=== PATIENT | female | born 1995 | race Caucasian/White ===

== ENCOUNTER 2016-05-04 10:37 | Emergency (ER) | payer MEDICAID ==
[~2016-05-04] VITALS: Ht 167.6 cm; Wt 107.7 kg
[~2016-05-04 10:37] MED LIST: ARIP5TAB6 PO; CLON0.5T PO; ESCI10TA10 PO; ESCI20TA10 PO; GABA300C10 PO; LORA0.5T PO; NORT50CA PO; OLAN5TAB9 PO; bcp PO
[2016-05-04] MEDS ORDERED: CLON0.5T PO (11:24)
[2016-05-04 11:41] LABS: HEMOGLOBIN 12.8 g/dL (11.7-16.4)
[2016-05-04 11:56] LABS: HCG UR OBC PASS
[2016-05-04 12:38] VITALS: BP 119/61
== END 2016-05-04 12:40 | disposition home or self-care (01) ==
LOC: ED 12:05
DX: N93.8 Other specified abnormal uterine and vaginal bleeding (principal); Z90.49 Acquired absence of other specified parts of digestive tract
CPT/HCPCS: 36415; 81003; 81025; 85014; 85018; 85610; 99284

== ENCOUNTER 2017-01-22 10:06 | Emergency (ER) | payer MEDICAID ==
[~2017-01-22] VITALS: Ht 167.6 cm; Wt 105.6 kg
[~2017-01-22 10:06] MED LIST changes: +ARIP5TAB13 PO; -ARIP5TAB6 PO
[2017-01-22] MEDS ORDERED: ONDANSETRON ODT 4 MG PO ONE (11:00)
[2017-01-22 11:54] LABS: HEMOGLOBIN 15.7 g/dL (11.7-16.4); WHITE BLOOD COUNT 19.4 x10^3/uL (3.4-10)
[2017-01-22] MEDS ORDERED: SULFAMETH./TRIMETHOPRIM DS 800MG/160MG TABLET PO ONE (12:00)
[2017-01-22] MEDS ORDERED: FAMOTIDINE 20 MG TABLET PO ONE (12:00)
[2017-01-22] MEDS ORDERED: MAALOX/HYOSCYAMINE/LIDOCAINE 45 ML BTL PO ONE (12:00)
[2017-01-22 12:06] LABS: BLOOD UREA NITROGEN 10 mg/dL (7-18)
[2017-01-22 12:11] LABS: ASPARTATE AMINO TRANSFERASE 109 U/L (15-37); DIFF TOTAL CELLS COUNTED 100 CELL DIFF
[2017-01-22 12:14] LABS: VERIFY COUNTS? YES
[2017-01-22 13:53] VITALS: BP 97/60
== END 2017-01-22 13:55 | disposition home or self-care (01) ==
LOC: ED 12:23
DX: K52.9 Noninfective gastroenteritis and colitis, unspecified (principal); F41.9 Anxiety disorder, unspecified; F32.9 Major depressive disorder, single episode, unspecified; F42.9 Obsessive-compulsive disorder, unspecified; Z90.49 Acquired absence of other specified parts of digestive tract
CPT/HCPCS: 36415; 76700; 80053; 81003; 83880; 84703; 85025; 99285; Q0162

== ENCOUNTER 2018-05-07 11:28 | Emergency (ER) | payer MEDICAID ==
[~2018-05-07] VITALS: Ht 167.6 cm; Wt 87.0 kg
[~2018-05-07 11:28] MED LIST changes: -NORT50CA PO; +NORT50CA52 PO
[2018-05-07 11:38] VITALS: BP 127/92
[2018-05-07] MEDS ORDERED: HYDROcodone/APAP 5/325 TABLET ONE ×2 (11:52→11:55)
[2018-05-07] MEDS ORDERED: HYDROcodone/APAP 5/325 TABLET PO ONE (12:00)
--- NOTE | 2018-05-07 12:17 | NUR ---
RIGHT FOOT PAIN STARTED ONE MONTH AGO AND WORSENING. MEDICATED FOR PAIN AND PROVIDED ICE FOR FOOT. AWAITING XRAY
== END 2018-05-07 13:10 | disposition home or self-care (01) ==
LOC: ED 12:47
DX: S90.31XA Contusion of right foot, initial encounter (principal); F32.9 Major depressive disorder, single episode, unspecified; F17.200 Nicotine dependence, unspecified, uncomplicated; Z90.49 Acquired absence of other specified parts of digestive tract; X58.XXXA Exposure to other specified factors, initial encounter; Y93.89 Activity, other specified; Y92.89 Other specified places as the place of occurrence of the external cause; Y99.8 Other external cause status
CPT/HCPCS: 99283

== ENCOUNTER 2018-06-26 18:57 | Emergency (ER) | payer OTHER, MEDICAID ==
[~2018-06-26] VITALS: Ht 167.6 cm; Wt 85.1 kg
[2018-06-26 19:13] VITALS: BP 113/76
[2018-06-26] MEDS ORDERED: SODIUM CHLORIDE FLUSH 10ML SYR IVF ONE (19:30)
[2018-06-26 19:41] LABS: BASOPHILS # (AUTO) 0.03 x10^3/uL (0-0.1); BASOPHILS % (AUTO) 0 % (0-1); EOSINOPHILS # (AUTO) 0.03 x10^3/uL (0-0.4); EOSINOPHILS % (AUTO) 0 % (1-7); LYMPHOCYTES # (AUTO) 1.37 x10^3/uL (1-3.4); LYMPHOCYTES % (AUTO) 21 % (22-44); MD NO; MEAN CORPUSCULAR HGB CONC 32.3 g/dL (32.4-35.8); MEAN PLATELET VOLUME 8.9 fL (7.4-10.4); MONOCYTES # (AUTO) 0.42 x10^3/uL (0.2-0.8); MONOCYTES % (AUTO) 6 % (2-9); NEUTROPHILS # (AUTO) 4.69 x10^3/uL (1.8-6.8); NEUTROPHILS % (AUTO) 72 % (42-75); PLATELET COUNT 300 x10^3/uL (130-400); RED BLOOD COUNT 5.05 x10^6/uL (3.82-5.3); RED CELL DISTRIBUTION WIDTH 12.8 % (9.6-15.2)
[2018-06-26 19:55] LABS: ALBUMIN 3.7 g/dL (3.4-5.0); ANION GAP 8 mmol/L (5-15); CALCIUM 9.2 mg/dL (8.5-10.1); CHLORIDE 108 mmol/L (98-107)
[2018-06-26 20:01] LABS: ALANINE AMINOTRANSFERASE 64 U/L (12-78); ALKALINE PHOSPHATASE 92 U/L (45-117); BILIRUBIN,TOTAL 0.9 mg/dL (0.2-1.0); TOTAL PROTEIN 7.4 g/dL (6.4-8.2)
[2018-06-26] MEDS ORDERED: PROMETHAZINE 25 MG/ML, 1ML IM ONE (20:30)
[2018-06-26] MEDS ORDERED: PROMETHAZINE 25 MG/ML, 1ML ONE (20:34)
--- NOTE | 2018-06-26 20:44 | NUR ---
Pt medicated per MAR for N/V. Given warm blanket s/t chills. Mother at bedside. Pt to be d/c.
== END 2018-06-26 20:57 | disposition home or self-care (01) ==
LOC: ED 20:50
DX: F11.23 Opioid dependence with withdrawal (principal); F41.1 Generalized anxiety disorder; Z72.9 Problem related to lifestyle, unspecified; F32.9 Major depressive disorder, single episode, unspecified
CPT/HCPCS: 36415; 80053; 83690; 84703; 85025; 93005; 96372; 99284; J2550

== ENCOUNTER 2019-01-23 15:56 | Emergency (ER) | payer MEDICAID, OTHER ==
[~2019-01-23] VITALS: Ht 167.6 cm; Wt 85.0 kg
[2019-01-23 16:06] VITALS: BP 114/64
--- NOTE | 2019-01-23 17:48 | NUR ---
PATTERN ASSEMBLER: PT TO ROOM FROM [facility]
[2019-01-23 17:58] LABS: BASOPHILS # (AUTO) 0.02 x10^3/uL (0-0.1); BASOPHILS % (AUTO) 0 % (0-1); EOSINOPHILS # (AUTO) 0.12 x10^3/uL (0-0.4); EOSINOPHILS % (AUTO) 2 % (1-7); LYMPHOCYTES # (AUTO) 1.94 x10^3/uL (1-3.4); LYMPHOCYTES % (AUTO) 35 % (22-44); MD NO; MEAN CORPUSCULAR HEMOGLOBIN 28.7 pg (27.0-34.8); MEAN CORPUSCULAR HGB CONC 32.8 g/dL (32.4-35.8); MEAN CORPUSCULAR VOLUME 87.6 fL (80-100); MEAN PLATELET VOLUME 8.1 fL (7.4-10.4); MONOCYTES # (AUTO) 0.41 x10^3/uL (0.2-0.8); MONOCYTES % (AUTO) 7 % (2-9); NEUTROPHILS % (AUTO) 56 % (42-75); PLATELET COUNT 283 x10^3/uL (130-400); RED BLOOD COUNT 4.95 x10^6/uL (3.82-5.3)
[2019-01-23 18:09] LABS: ALBUMIN 3.5 g/dL (3.4-5.0); ANION GAP 5 mmol/L (5-15); CHLORIDE 106 mmol/L (98-107); CREATININE 0.71 mg/dL (0.55-1.02)
[2019-01-23 18:23] LABS: CULTURE INDICATED? YES; MICROSCOPIC INDICATED
[2019-01-23] MEDS ORDERED: AZITHROMYCIN 500 MG TABLET PO ONE (19:00)
[2019-01-23] MEDS ORDERED: LIDOCAINE-MPF 1%, 2ML ONE (19:00)
[2019-01-23] MEDS ORDERED: CEFTRIAXONE 250 MG ONE (19:00)
[2019-01-23] MEDS ORDERED: AZITHROMYCIN 500 MG TABLET ONE (19:00)
[2019-01-23] MEDS ORDERED: CEFTRIAXONE 250 MG IM ONE (19:00)
--- NOTE | 2019-01-23 19:04 | NUR ---
PER DR. ORTIZ, A CHLAMYDIA/GONORRHEA SWAB IS NOT NEEDED. PT BEING MECICATED WITH ROCEPHIN AND AZITHROMYCIN PER MD ORDER.
== END 2019-01-23 19:26 | disposition home or self-care (01) ==
LOC: ED 19:05
DX: A56.01 Chlamydial cystitis and urethritis (principal); R30.0 Dysuria; F17.200 Nicotine dependence, unspecified, uncomplicated; Z90.49 Acquired absence of other specified parts of digestive tract; Z90.89 Acquired absence of other organs
CPT/HCPCS: 36415; 80048; 81001; 82040; 84703; 85025; 87086; 96372; 99283; J0696

== ENCOUNTER 2019-01-31 01:10 | Emergency (ER) | payer MEDICAID ==
[~2019-01-31] VITALS: Ht 167.6 cm; Wt 84.7 kg
[2019-01-31 01:12] VITALS: BP 128/76
[2019-01-31] MEDS ORDERED: AMOXICILLIN 500 MG CAPSULE PO ONE (01:30)
[2019-01-31] MEDS ORDERED: AMOXICILLIN 500 MG CAPSULE ONE (01:37)
== END 2019-01-31 01:47 | disposition home or self-care (01) ==
LOC: ED 01:42
DX: K04.7 Periapical abscess without sinus (principal); K02.9 Dental caries, unspecified
CPT/HCPCS: 99283

== ENCOUNTER 2019-04-22 16:27 | Emergency (ER) | payer MEDICAID ==
--- NOTE | 2019-04-22 17:05 | NUR ---
NO ANSWER IN LOBBY.
--- NOTE | 2019-04-22 17:15 | NUR ---
[id number]
--- NOTE | 2019-04-22 17:31 | NUR ---
NO ANSWER IN LOBBY.
== END 2019-04-22 17:33 | disposition left against medical advice (07) ==
LOC: ED 17:25
DX: M79.675 Pain in left toe(s) (principal); Z53.21 Procedure and treatment not carried out due to patient leaving prior to being seen by health care provider

== ENCOUNTER 2019-07-12 12:29 | Emergency (ER) | payer MEDICAID ==
[~2019-07-12] VITALS: Ht 167.6 cm; Wt 78.0 kg
--- NOTE | 2019-07-12 13:15 | NUR ---
PT AMBULATED TO RESTROOM WITH STEADY GAIT TO PROVIDE URINE SAMPLE. UA ORDERED PER PROTOCOL AND TAKEN TO LAB.
[2019-07-12 13:33] LABS: MICROSCOPIC INDICATED
[2019-07-12] MEDS ORDERED: AZITHROMYCIN 500 MG TABLET PO ONE (14:00)
[2019-07-12] MEDS ORDERED: CEFTRIAXONE 250 MG IM ONE (14:00)
[2019-07-12 14:12] LABS: HCG UR SG 1.024 (1.003-1.030)
[2019-07-12] MEDS ORDERED: CEFTRIAXONE 250 MG ONE (14:13)
[2019-07-12] MEDS ORDERED: AZITHROMYCIN 250 MG TABLET ONE (14:14)
[2019-07-12 14:21] VITALS: BP 111/68
--- NOTE | 2019-07-12 14:21 | NUR ---
MEDS ADMIN PER MAR. ROOM READY FOR PELVIC.
[2019-07-12 15:26] LABS: CLUE CELLS PRESENT (NONE SEEN); WET PREP WBCS MODERATE (FEW)
--- NOTE | 2019-07-12 15:30 | NUR ---
ALL RESULTS ARE BACK AT THIS TIME. CHART UP FOR RECHECK. PT MOTHER AT BEDSIDE. PT SITTING IN CHAIR.
== END 2019-07-12 16:16 | disposition home or self-care (01) ==
LOC: ED 13:26
DX: N30.00 Acute cystitis without hematuria (principal); A56.01 Chlamydial cystitis and urethritis; A59.01 Trichomonal vulvovaginitis; R10.2 Pelvic and perineal pain; N89.8 Other specified noninflammatory disorders of vagina; Z90.49 Acquired absence of other specified parts of digestive tract; Z90.89 Acquired absence of other organs
CPT/HCPCS: 81001; 81025; 87086; 87210; 87491; 87591; 87808; 96372; 99284; J0696; 99283

== ENCOUNTER 2019-10-12 07:30 | Emergency (ER) | payer SELFPAY ==
[~2019-10-12] VITALS: Ht 167.6 cm; Wt 89.5 kg
[2019-10-12] MEDS ORDERED: ASPIRIN 81 MG TABLET CHEW ONE (08:00)
[2019-10-12] MEDS ORDERED: ASPIRIN 81 MG TABLET CHEW PO ONE (08:00)
[2019-10-12 08:31] LABS: BASOPHILS # (AUTO) 0.01 x10^3/uL (0-0.1); BASOPHILS % (AUTO) 0 % (0-1); EOSINOPHILS # (AUTO) 0.19 x10^3/uL (0-0.4); EOSINOPHILS % (AUTO) 3 % (1-7); LYMPHOCYTES # (AUTO) 2.17 x10^3/uL (1-3.4); LYMPHOCYTES % (AUTO) 38 % (22-44); MD NO; MEAN CORPUSCULAR HEMOGLOBIN 28.9 pg (27.0-34.8); MEAN CORPUSCULAR HGB CONC 32.1 g/dL (32.4-35.8); MEAN CORPUSCULAR VOLUME 90.1 fL (80-100); MEAN PLATELET VOLUME 7.8 fL (7.4-10.4); MONOCYTES # (AUTO) 0.53 x10^3/uL (0.2-0.8); MONOCYTES % (AUTO) 9 % (2-9); NEUTROPHILS # (AUTO) 2.85 x10^3/uL (1.8-6.8); NEUTROPHILS % (AUTO) 50 % (42-75); PLATELET COUNT 266 x10^3/uL (130-400); RED BLOOD COUNT 4.33 x10^6/uL (3.82-5.3); RED CELL DISTRIBUTION WIDTH 12.9 % (9.6-15.2)
[2019-10-12 08:41] LABS: ALANINE AMINOTRANSFERASE 97 U/L (12-78); ALBUMIN 3.3 g/dL (3.4-5.0); ANION GAP 6 mmol/L (5-15); CALCIUM 8.8 mg/dL (8.5-10.1); CHLORIDE 107 mmol/L (98-107); CREATININE 0.72 mg/dL (0.55-1.02)
[2019-10-12 08:45] LABS: ALKALINE PHOSPHATASE 93 U/L (45-117); BILIRUBIN,TOTAL 0.5 mg/dL (0.2-1.0); TOTAL PROTEIN 6.7 g/dL (6.4-8.2); TROPONIN I < 0.015 ng/mL (0.000-0.045)
--- NOTE | 2019-10-12 08:45 | NUR ---
PT IN HOSPITAL GOWN. PT HAS BEEN PLACED ON CARDIAC AND VITALS MONITORS. PT PLACED ON BEDPAN TO VOID. PT MOTHER AT BEDSIDE. VSS. PT STATED SHE FEELS DIZZY. PT ENCOURAGED TO STAY IN BED. PT REASSURED HER VITALS ARE FINE SHE WAS WORRIED. PT CONCERNED ABOUT FALLING ASLEEP, STATED WHAT IF SOMETING HAPPENS WHILE SHE IS SLEEPING. PT ONCE AGAIN REASSURED SHE IS BEING MONITORED.
[2019-10-12 10:05] VITALS: BP 119/70
== END 2019-10-12 10:07 | disposition home or self-care (01) ==
LOC: ED 08:29
DX: M94.0 Chondrocostal junction syndrome [Tietze] (principal); F15.20 Other stimulant dependence, uncomplicated; F14.20 Cocaine dependence, uncomplicated; Z72.9 Problem related to lifestyle, unspecified; F17.210 Nicotine dependence, cigarettes, uncomplicated; Z90.49 Acquired absence of other specified parts of digestive tract
CPT/HCPCS: 36415; 71045; 80053; 84484; 84703; 85025; 93005; 99285

== ENCOUNTER 2019-11-02 00:25 | Emergency (ER) | payer SELFPAY ==
[~2019-11-02] VITALS: Ht 167.6 cm; Wt 87.7 kg
[2019-11-02 00:31] VITALS: BP 117/63
--- NOTE | 2019-11-02 00:35 | NUR ---
PER PT LAST HEROIN USE WAS 2 HRS AGO
--- NOTE | 2019-11-02 00:37 | NUR ---
EKG DONE IN TRIAGE
[2019-11-02 02:04] LABS: ALANINE AMINOTRANSFERASE 108 U/L (12-78); ALBUMIN 3.2 g/dL (3.4-5.0); ANION GAP 4 mmol/L (5-15); CALCIUM 8.7 mg/dL (8.5-10.1); CHLORIDE 106 mmol/L (98-107)
[2019-11-02 02:09] LABS: ALKALINE PHOSPHATASE 88 U/L (45-117); BILIRUBIN,TOTAL 0.4 mg/dL (0.2-1.0)
--- NOTE | 2019-11-02 02:15 | NUR ---
PT NOT IN LOBBY WHEN CALLED AT THIS TIME
--- NOTE | 2019-11-02 02:30 | NUR ---
LAB TO LOBBY, PT NOT FOUND
--- NOTE | 2019-11-02 03:29 | NUR ---
NO ANSWER AT THIS TIME
[2019-11-02] MEDS ORDERED: OMNIPAQUE 350 MG/ML, 75ML BOTTLE ONE (23:00)
== END 2019-11-02 03:30 | disposition left against medical advice (07) ==
LOC: ED 03:25
DX: R07.9 Chest pain, unspecified (principal); R10.9 Unspecified abdominal pain; Z53.21 Procedure and treatment not carried out due to patient leaving prior to being seen by health care provider
CPT/HCPCS: 36415; 80053; 84703; 93005; Q9967

== ENCOUNTER 2019-12-02 15:41 | Emergency (ER) | payer SELFPAY ==
[~2019-12-02] VITALS: Ht 167.6 cm; Wt 85.7 kg
[2019-12-02 16:13] VITALS: BP 117/68
--- NOTE | 2019-12-02 18:51 | NUR ---
attempted to call pt from lobby to triage to update vs. pt nil x 1.
--- NOTE | 2019-12-02 19:15 | NUR ---
not in lobby
--- NOTE | 2019-12-02 19:44 | NUR ---
pt not in lobby
== END 2019-12-02 19:46 | disposition left against medical advice (07) ==
LOC: ED 19:40
DX: H57.12 Ocular pain, left eye (principal); Z53.21 Procedure and treatment not carried out due to patient leaving prior to being seen by health care provider

== ENCOUNTER 2020-03-25 06:14 | Emergency (ER) | payer MEDICAID ==
[~2020-03-25] VITALS: Ht 167.6 cm; Wt 90.0 kg
--- NOTE | 2020-03-25 06:49 | NUR ---
PT HERE FOR AB PAIN X5 MONTHS. PER ERP PT WAS EATING A BUNCH OF ICE CREAM IN ROOM. PT IS IV DRUG USER, LAST USE 4 HOURS. PT DROWSY IN BED, URINE COLLECTED, LAB AT BEDSIDE
[2020-03-25 07:12] LABS: ALANINE AMINOTRANSFERASE 91 U/L (12-78); ALBUMIN 3.8 g/dL (3.4-5.0); ANION GAP 8 mmol/L (5-15); CALCIUM 8.9 mg/dL (8.5-10.1); CHLORIDE 107 mmol/L (98-107); CREATININE 0.75 mg/dL (0.55-1.02)
[2020-03-25 07:14] LABS: BASOPHILS % (AUTO) 1 % (0-1); EOSINOPHILS % (AUTO) 4 % (1-7); LYMPHOCYTES % (AUTO) 37 % (22-44); MEAN CORPUSCULAR HEMOGLOBIN 29.5 pg (27.0-34.8); MEAN CORPUSCULAR HGB CONC 34.1 g/dL (32.4-35.8); MEAN PLATELET VOLUME 8.3 fL (7.4-10.4); MONOCYTES % (AUTO) 7 % (2-9); NEUTROPHILS % (AUTO) 51 % (42-75); PLATELET COUNT 268 x10^3/uL (130-400); RED BLOOD COUNT 4.64 x10^6/uL (3.82-5.3); RED CELL DISTRIBUTION WIDTH 13.6 % (9.6-15.2)
[2020-03-25 07:15] LABS: MD NO
[2020-03-25 07:16] LABS: ALKALINE PHOSPHATASE 90 U/L (45-117); BILIRUBIN,TOTAL 0.4 mg/dL (0.2-1.0); TOTAL PROTEIN 7.5 g/dL (6.4-8.2)
[2020-03-25 07:32] LABS: MICROSCOPIC INDICATED
[2020-03-25] MEDS ORDERED: CEFTRIAXONE 250 MG ONE (10:40)
[2020-03-25] MEDS ORDERED: AZITHROMYCIN 250 MG TABLET ONE (10:40)
[2020-03-25 10:46] VITALS: BP 95/55
[2020-03-25 10:50] LABS: CLUE CELLS NONE SEEN (NONE SEEN); WET PREP WBCS FEW (FEW)
[2020-03-25] MEDS ORDERED: AZITHROMYCIN 500 MG TABLET PO ONE (11:00)
[2020-03-25] MEDS ORDERED: CEFTRIAXONE 250 MG IM ONE (11:00)
--- NOTE | 2020-03-25 11:19 | NUR ---
PT REC'VD DISCHARGE INSTRUCTIONS AND EDUCATION. PT HAD NO FURTHER QUESTIONS. PT AMBULATED TO DC AREA, STEADY GAIT.
== END 2020-03-25 11:21 | disposition home or self-care (01) ==
LOC: ED 07:34
DX: R10.11 Right upper quadrant pain (principal); F11.10 Opioid abuse, uncomplicated; F17.210 Nicotine dependence, cigarettes, uncomplicated; Z90.49 Acquired absence of other specified parts of digestive tract; Z90.89 Acquired absence of other organs; Z72.9 Problem related to lifestyle, unspecified
CPT/HCPCS: 36415; 71045; 80053; 81001; 83690; 84703; 85025; 87210; 87491; 87591; 87808; 93005; 96372; 99285; 99406; J0696

== ENCOUNTER 2020-07-16 21:01 | Emergency (ER) | payer MEDICAID ==
[~2020-07-16] VITALS: Ht 167.6 cm; Wt 87.1 kg
[2020-07-16] MEDS ORDERED: CEFTRIAXONE 1,000 MG IM ONE (21:30)
[2020-07-16] MEDS ORDERED: SODIUM CHLORIDE FLUSH 10ML SYR IVF ONE (21:30)
[2020-07-16] MEDS ORDERED: DOXYCYCLINE 100MG TABLET PO ONE (21:30)
[2020-07-16 22:24] LABS: BASOPHILS % (AUTO) 0 % (0-1); EOSINOPHILS % (AUTO) 3 % (1-7); LYMPHOCYTES % (AUTO) 34 % (22-44); MEAN CORPUSCULAR HEMOGLOBIN 29.2 pg (27.0-34.8); MEAN CORPUSCULAR HGB CONC 33.8 g/dL (32.4-35.8); MEAN PLATELET VOLUME 8.5 fL (7.4-10.4); MONOCYTES % (AUTO) 8 % (2-9); NEUTROPHILS % (AUTO) 55 % (42-75); PLATELET COUNT 271 x10^3/uL (130-400); RED BLOOD COUNT 4.69 x10^6/uL (3.82-5.3); RED CELL DISTRIBUTION WIDTH 13.7 % (9.6-15.2)
[2020-07-16 22:26] LABS: ALANINE AMINOTRANSFERASE 66 U/L (12-78); ALBUMIN 3.6 g/dL (3.4-5.0); ANION GAP 3 mmol/L (5-15); CALCIUM 8.7 mg/dL (8.5-10.1); CHLORIDE 107 mmol/L (98-107); CREATININE 0.66 mg/dL (0.55-1.02)
[2020-07-16 22:30] LABS: ALKALINE PHOSPHATASE 80 U/L (45-117); BILIRUBIN,TOTAL 0.4 mg/dL (0.2-1.0); TOTAL PROTEIN 7.4 g/dL (6.4-8.2); TROPONIN I < 0.015 ng/mL (0.000-0.045)
--- NOTE | 2020-07-16 22:43 | NUR ---
thermometer maker: pt from lobby to room 34
[2020-07-16] MEDS ORDERED: DOXYCYCLINE 100MG TABLET ONE (23:02)
[2020-07-16] MEDS ORDERED: CEFTRIAXONE 1,000 MG ONE (23:03)
[2020-07-16] MEDS ORDERED: AZITHROMYCIN 250 MG TABLET ONE (23:16)
--- NOTE | 2020-07-16 23:17 | NUR ---
DR KEENE ADVISING TO CHANGE THE MED DOXYCYCLINE TO AZITHROMYCIN
[2020-07-16] MEDS ORDERED: AZITHROMYCIN 500 MG TABLET PO ONE (23:30)
[2020-07-16 23:57] LABS: HCG UR SG 1.021 (1.003-1.030)
[2020-07-17 00:08] LABS: MICROSCOPIC INDICATED
[2020-07-17 02:00] VITALS: BP 115/56
--- NOTE | 2020-07-17 02:02 | NUR ---
PT REC'VD DISCHARGE INSTRUCTIONS AND EDUCATION. PT HAD NO FURTHER QUESTIONS.
--- NOTE | 2020-07-17 02:13 | NUR ---
PT AMBULATED TO OH AREA, STEADY GAIT
== END 2020-07-17 02:14 | disposition home or self-care (01) ==
LOC: ED 23:14
DX: R06.00 Dyspnea, unspecified (principal); Z20.822 Contact with and (suspected) exposure to COVID-19; F17.210 Nicotine dependence, cigarettes, uncomplicated; Z90.49 Acquired absence of other specified parts of digestive tract
CPT/HCPCS: 36415; 71045; 80053; 81001; 81025; 84484; 85025; 87086; 87491; 87591; 93005; 96372; 99285; 99406; J0696; U0003; U0005

== ENCOUNTER 2020-08-16 01:56 | Emergency (ER) | payer MEDICAID ==
[~2020-08-16] VITALS: Ht 167.6 cm; Wt 85.0 kg
[2020-08-16 01:59] VITALS: BP 118/69
[2020-08-16] MEDS ORDERED: SULFAMETH./TRIMETHOPRIM DS 800MG/160MG TABLET PO ONE (02:30)
[2020-08-16] MEDS ORDERED: LIDOCAINE-MPF 1%, 5ML INFIL ONE (02:30)
[2020-08-16] MEDS ORDERED: CEPHALEXIN 500 MG CAPSULE PO ONE (02:30)
[2020-08-16] MEDS ORDERED: LIDOCAINE-MPF 1%, 5ML ONE (02:41)
[2020-08-16] MEDS ORDERED: SULFAMETH./TRIMETHOPRIM DS 800MG/160MG TABLET ONE (02:41)
[2020-08-16] MEDS ORDERED: CEPHALEXIN 500 MG CAPSULE ONE (02:41)
--- NOTE | 2020-08-16 02:50 | NUR ---
pt presents to the ed with abcess on upper left thigh. pt in gown and resting on gurney, erp at bedside
[2020-08-16] MEDS ORDERED: LORazepam 1MG TABLET PO ONE (03:00)
[2020-08-16] MEDS ORDERED: LORazepam 1MG TABLET ONE (03:00)
--- NOTE | 2020-08-16 03:03 | NUR ---
pt receiving lidocaine, erp at bedside
--- NOTE | 2020-08-16 03:26 | NUR ---
pt's abcess drained, pt tolerated procedure well.
[2020-08-16] MEDS ORDERED: AZITHROMYCIN 250 MG TABLET ONE (03:29)
[2020-08-16] MEDS ORDERED: CEFTRIAXONE 1,000 MG ONE (03:29)
[2020-08-16] MEDS ORDERED: CEFTRIAXONE 1,000 MG IM ONE (03:30)
[2020-08-16] MEDS ORDERED: AZITHROMYCIN 500 MG TABLET PO ONE (03:30)
--- NOTE | 2020-08-16 04:14 | NUR ---
Patient given discharge instructions and they have confirmed that they understand the instructions. Patient ambulatory with steady gait. pt refused vs
== END 2020-08-16 04:17 | disposition home or self-care (01) ==
LOC: ED 04:00
DX: L02.416 Cutaneous abscess of left lower limb (principal); Z20.2 Contact with and (suspected) exposure to infections with a predominantly sexual mode of transmission; F17.210 Nicotine dependence, cigarettes, uncomplicated
CPT/HCPCS: 10060; 96372; 99284; 99406; J0696

== ENCOUNTER 2020-08-20 18:00 | Emergency (ER) | payer MEDICAID ==
[~2020-08-20] VITALS: Ht 167.6 cm; Wt 87.2 kg
[2020-08-20 18:04] VITALS: BP 116/72
--- NOTE | 2020-08-20 18:18 | NUR ---
PT REPORTS THAT SHE HAS NOT PICKED UP PO ABX
== END 2020-08-20 19:03 | disposition home or self-care (01) ==
LOC: ED 18:45
DX: Z48.01 Encounter for change or removal of surgical wound dressing (principal)
CPT/HCPCS: 99283